=== PATIENT | male | born 1975 | race Caucasian/White ===

== ENCOUNTER 2022-02-05 00:39 | Emergency (ER) | payer OTHER ==
[~2022-02-05] VITALS: Ht 167.6 cm; Wt 58.1 kg
[~2022-02-05 00:39] MED LIST: DILANTIN100 MG PO
[2022-02-05] MEDS ORDERED: CYCLOBENZAPRINE10 MG PO (01:12)
== END 2022-02-05 01:28 | disposition home or self-care (01) ==
LOC: ED 00:39
DX: M25.511 Pain in right shoulder (principal); M54.6 Pain in thoracic spine; F17.210 Nicotine dependence, cigarettes, uncomplicated
CPT/HCPCS: 99283